=== PATIENT | male | born 1955 | race Caucasian/White ===

== ENCOUNTER 2021-02-13 19:25 | Inpatient (IN) | payer OTHER ==
[~2021-02-13] VITALS: Ht 180.3 cm; Wt 97.6 kg
[2021-02-13] MEDS ORDERED: ASPIRIN 81 MG TABLET CHEW ONE (19:54)
[2021-02-13] MEDS ORDERED: SODIUM CHLORIDE FLUSH 10ML SYR IVF ONE (20:00)
[2021-02-13] MEDS ORDERED: ASPIRIN 81 MG TABLET CHEW PO ONE (20:00)
[2021-02-13] MEDS ORDERED: SODIUM CHLORIDE 0.9% 1,000ML IVBOLUS ONE (20:00)
[2021-02-13] MEDS ORDERED: PROPOFOL 10 MG/ML, 20ML IVPush ONE (20:00)
[2021-02-13 20:04] LABS: BASOPHILS % (AUTO) 1 % (0-1); EOSINOPHILS % (AUTO) 5 % (1-7); LYMPHOCYTES % (AUTO) 26 % (22-44); MEAN CORPUSCULAR HEMOGLOBIN 31.2 pg (27.5-34.5); MEAN CORPUSCULAR HGB CONC 33.9 g/dL (33.2-36.2); MEAN PLATELET VOLUME 9.2 fL (7.4-10.4); MONOCYTES % (AUTO) 9 % (2-9); NEUTROPHILS % (AUTO) 59 % (42-75); PLATELET COUNT 234 x10^3/uL (130-400); RED BLOOD COUNT 5.03 x10^6/uL (4.38-5.82); RED CELL DISTRIBUTION WIDTH 13.8 % (9.4-14.8)
[2021-02-13] MEDS ORDERED: APIXABAN 5 MG TABLET PO ONE (20:13)
[2021-02-13 20:15] LABS: ANION GAP 5 mmol/L (5-15); CALCIUM 8.7 mg/dL (8.5-10.1); CHLORIDE 109 mmol/L (98-107); CREATININE 1.06 mg/dL (0.7-1.3)
[2021-02-13 20:16] LABS: ALANINE AMINOTRANSFERASE 58 U/L (12-78); ALBUMIN 3.4 g/dL (3.4-5.0)
[2021-02-13 20:20] LABS: ALKALINE PHOSPHATASE 90 U/L (45-117); BILIRUBIN,TOTAL 0.5 mg/dL (0.2-1.0); TOTAL PROTEIN 7.3 g/dL (6.4-8.2)
[2021-02-13 20:21] LABS: T4 (THYROXINE) 9.6 mcg/dL (4.5-12.1)
[2021-02-13 20:26] LABS: TROPONIN I 0.216 ng/mL (0.000-0.045)
[2021-02-13] MEDS ORDERED: METOPROLOL 1 MG/ML, 5ML IVPush PRN (20:30)
[2021-02-13] MEDS ORDERED: APIXABAN 5 MG TABLET ONE (20:38)
[2021-02-13] MEDS ORDERED: LABETALOL 5MG/ML, 20ML ONE (20:38)
[2021-02-13] MEDS ORDERED: METOPROLOL 1 MG/ML, 5ML ONE (20:43)
[2021-02-13] MEDS ORDERED: POLYETHYLENE GLYCOL 17 GM PACKET PO PRN (22:00)
[2021-02-13] MEDS ORDERED: ONDANSETRON 2MG/ML, 2ML IVPush PRN (22:00)
[2021-02-13] MEDS ORDERED: NITROGLYCERIN 0.4 MG BOTTLE (25 TABS) SL PRN (22:00)
[2021-02-13] MEDS ORDERED: morphine SULFATE 10 MG/ML, 1ML IVPush PRN (22:00)
[2021-02-13] MEDS ORDERED: ACETAMINOPHEN 325 MG TABLET PO PRN (22:00)
[2021-02-13] MEDS ORDERED: BISACODYL 10 MG SUPP PR PRN (22:00)
[2021-02-13] MEDS: SODIUM CHLORIDE FLUSH 10ML SYR IVF SCH (22:00)
[2021-02-13 23:40] VITALS: BP 134/67
[2021-02-14 02:55] LABS: BASOPHILS % (AUTO) 1 % (0-1); EOSINOPHILS % (AUTO) 5 % (1-7); LYMPHOCYTES % (AUTO) 37 % (22-44); MEAN CORPUSCULAR HEMOGLOBIN 31.2 pg (27.5-34.5); MEAN CORPUSCULAR HGB CONC 34.1 g/dL (33.2-36.2); MEAN PLATELET VOLUME 8.8 fL (7.4-10.4); MONOCYTES % (AUTO) 9 % (2-9); NEUTROPHILS % (AUTO) 47 % (42-75); PLATELET COUNT 213 x10^3/uL (130-400); RED BLOOD COUNT 4.73 x10^6/uL (4.38-5.82); RED CELL DISTRIBUTION WIDTH 13.9 % (9.4-14.8)
[2021-02-14 03:04] LABS: ANION GAP 5 mmol/L (5-15); CALCIUM 8.3 mg/dL (8.5-10.1); CHLORIDE 108 mmol/L (98-107); CHOLESTEROL, TOTAL 143 mg/dL (140-239); CREATININE 0.93 mg/dL (0.7-1.3); TRIGLYCERIDES 151 mg/dL (50-200); VLDL CHOLESTEROL 30 mg/dL (0-25)
[2021-02-14 03:07] LABS: CHOL/HDL RATIO 3.5; HDL CHOL % 29 % (26-37); HDL CHOLESTEROL (DIRECT) 41 mg/dL (40-60); LDL CHOLESTEROL,CALCULATED 72 mg/dL (54-169); LDL/HDL RATIO 1.8 (0.5-3.0)
[2021-02-14 03:21] VITALS: BP 135/100
[2021-02-14] MEDS ORDERED: HEPARIN 5,000 UNITS/ML, 1ML IV PRN (04:00)
[2021-02-14] MEDS ORDERED: HEPARIN 25,000 UNITS/250ML PMX 250 ML IV PRN ×2 (04:00)
[2021-02-14] MEDS ORDERED: HEPARIN 5,000 UNITS/ML, 1ML IV ONE (04:00)
[2021-02-14] MEDS: ASPIRIN 81 MG TABLET EC PO SCH (05:29)
[2021-02-14] MEDS: SENNA/DOCUSATE TABLET PO SCH (08:30)
[2021-02-14] MEDS: METOPROLOL TARTRATE 25 MG TAB PO SCH (08:33)
[2021-02-14] MEDS: SODIUM CHLORIDE FLUSH 10ML SYR IVF SCH ×2 (08:33→21:02)
[2021-02-14 08:34] VITALS: BP 142/99
[2021-02-14] MEDS ORDERED: BIVALIRUDIN 250 MG ONE (11:40)
[2021-02-14] MEDS ORDERED: FENTANYL PF 100 MCG/2ML ONE (11:40)
[2021-02-14] MEDS ORDERED: LIDOCAINE-MPF 1%, 5ML ONE (11:40)
[2021-02-14] MEDS ORDERED: VERAPAMIL 2.5 MG/ML, 2ML ONE (11:40)
[2021-02-14] MEDS ORDERED: MIDAZOLAM 1 MG/ML, 5ML ONE (11:40)
[2021-02-14] MEDS ORDERED: TICAGRELOR 90 MG TABLET ONE (11:40)
[2021-02-14 14:00] VITALS: BP 109/82
[2021-02-14 20:11] VITALS: BP 121/81
[2021-02-14] MEDS ORDERED: ATORVASTATIN 40 MG TABLET PO SCH ×2 (21:00)
[2021-02-14] MEDS: APIXABAN 5 MG TABLET PO SCH (21:01)
[2021-02-15 01:49] VITALS: BP 125/80
[2021-02-15 05:28] LABS: BASOPHILS % (AUTO) 1 % (0-1); EOSINOPHILS % (AUTO) 4 % (1-7); LYMPHOCYTES % (AUTO) 30 % (22-44); MEAN CORPUSCULAR HGB CONC 33.9 g/dL (33.2-36.2); MEAN PLATELET VOLUME 9.4 fL (7.4-10.4); MONOCYTES % (AUTO) 8 % (2-9); NEUTROPHILS % (AUTO) 58 % (42-75); PLATELET COUNT 231 x10^3/uL (130-400); RED BLOOD COUNT 5.11 x10^6/uL (4.38-5.82); RED CELL DISTRIBUTION WIDTH 13.6 % (9.4-14.8)
[2021-02-15 05:33] LABS: ANION GAP 5 mmol/L (5-15); CALCIUM 8.5 mg/dL (8.5-10.1); CHLORIDE 107 mmol/L (98-107); CREATININE 0.94 mg/dL (0.7-1.3)
[2021-02-15] MEDS: ASPIRIN 81 MG TABLET EC PO SCH (05:52)
[2021-02-15 07:06] VITALS: BP 146/104
[2021-02-15] MEDS: SENNA/DOCUSATE TABLET PO SCH (07:59)
[2021-02-15] MEDS: METOPROLOL TARTRATE 25 MG TAB PO SCH (08:25)
[2021-02-15] MEDS: SODIUM CHLORIDE FLUSH 10ML SYR IVF SCH (08:25)
[2021-02-15] MEDS: APIXABAN 5 MG TABLET PO SCH (08:25)
[2021-02-15] MEDS ORDERED: LOSARTAN 25MG TABLET PO SCH (09:00)
[2021-02-15] MEDS ORDERED: ASPI81TA45 PO (12:26)
[2021-02-15] MEDS ORDERED: LOSA25TA25 PO (12:26)
[2021-02-15] MEDS ORDERED: ATOR40TA78 PO (12:26)
[2021-02-15] MEDS ORDERED: APIX5TAB PO (12:26)
[2021-02-15] MEDS ORDERED: METO25TA35 PO (12:26)
== END 2021-02-15 17:07 | disposition home or self-care (01) | DRG 281 ==
LOC: ED 21:52 → EDIP 22:09 → 5SO 23:17
PROVIDERS: ADMIT Internal Medicine; ATTEND Hospitalist
PROC: 4A023N7 Measurement of Cardiac Sampling and Pressure, Left Heart, Percutaneous Approach (ICD-10-PCS; principal; 2021-02-14)
PROC: B2111ZZ Fluoroscopy of Multiple Coronary Arteries using Low Osmolar Contrast (ICD-10-PCS; 2021-02-14)
PROC: B2151ZZ Fluoroscopy of Left Heart using Low Osmolar Contrast (ICD-10-PCS; 2021-02-14)
DX: I21.4 Non-ST elevation (NSTEMI) myocardial infarction (principal); D68.69 Other thrombophilia; I42.0 Dilated cardiomyopathy; E78.5 Hyperlipidemia, unspecified; I25.110 Atherosclerotic heart disease of native coronary artery with unstable angina pectoris; Z66 Do not resuscitate; I48.0 Paroxysmal atrial fibrillation; Z82.5 Family history of asthma and other chronic lower respiratory diseases; Z82.49 Family history of ischemic heart disease and other diseases of the circulatory system; Z80.9 Family history of malignant neoplasm, unspecified; Z79.01 Long term (current) use of anticoagulants
CPT/HCPCS: 36415; 71045; 80048; 80053; 80061; 83735; 84436; 84443; 84484; 85025; 85520; 93005; 93306; 93458; 96374; 99156; 99285; C1769; C1894; G0378; J0583; J1644; J2250; J3010; J7030; Q9967